=== PATIENT | female | born 1960 | race Caucasian/White ===

== ENCOUNTER 2018-08-06 08:01 | Emergency (ER) | payer BC ==
--- NOTE | 2018-08-06 08:16 | EDPHY ---
H & P Time Seen by Provider: 08/06/18 08:15 HPI/ROS: Chief complaint. Back pain HPI. 57-year-old female with low back pain. She frequently is stiff in the morning however yesterday she says she was more stiff than usual. She went to an appointment about 1 o'clock in the afternoon and the pain was so severe she was unable to walk unassisted and had to be helped in to the building as well as back out of the building. She feels she has difficulty moving her right leg and is not sure whether it is because it is weak or because of pain. She has pain radiating down the right leg. No bowel or bladder symptoms. No injury other than possibly patient was bowling 4 days ago which was unusual activity for her. No previous back surgery though has had a bulging disc in her neck previously. Symptoms are worse with trying to walk and go from lying to standing ROS 10 systems were reviewed and negative with the exception of the elements mentioned in the history of present illness Past Medical/Surgical History: Healthy Social History: , nonsmoker, no alcohol Smoking Status: Never smoked Physical Exam: General Appearance: Alert well-developed female moderate distress vital signs are stable Eyes: Pupils equal and round no pallor or injection. ENT, Mouth: Mucous membranes are moist. Respiratory: There are no retractions, lungs are clear to auscultation. Cardiovascular: Regular rate and rhythm. Gastrointestinal: Abdomen is soft and nontender, no masses, bowel sounds normal. Neurological: Awake and alert, sensory and motor exams grossly normal. Straight leg raising positive bilaterally at 30 degrees. Deep tendon reflexes are diminished but symmetrical. Great toe strength is normal. Sensation is normal Skin: Warm and dry, no rashes. Musculoskeletal: Neck is supple nontender. Tenderness on both sides of the lumbar spine may be somewhat worse to the left side of L3 area Extremities symmetrical, full range of motion. Psychiatric: Patient is oriented X 3, there is no agitation. Constitutional: Initial Vital Signs Temperature (C) 37.1 C 08/06/18 08:04 Heart Rate 85 08/06/18 08:04 Respiratory Rate 18 08/06/18 08:04 Blood Pressure 128/96 H 08/06/18 08:04 O2 Sat (%) 95 08/06/18 08:04 O2 Delivery Mode Room Air Allergies/Adverse Reactions: No Known Allergies Allergy (Verified 08/06/18 08:03) Home Medications: Medication Instructions Recorded Multivitamin 07/05/11 Cyclobenzaprine [Flexeril 10 MG 10 mg PO TID PRN #10 tab 08/06/18 (*)] Hydrocodone/APAP 5/325 [[place] 1 each PO Q4-6PRN PRN #14 tab 08/06/18 5/325 (*)] predniSONE 40 mg PO DAILY #10 tablet 08/06/18 Medical Decision Making - Diagnostics Imaging Results: MRI lumbar spine without contrast reviewed by me and discussed with radiologist shows a moderate sized lateral disc herniation but not centrally at L2-3 level. There is no stenosis, impingement, cauda equina syndrome Procedures: IV normal saline. Morphine for pain. Valium as muscle relaxer ED Course/Re-evaluation: Re-evaluation 10:30 a.m.. Patient and I discussed imaging results, treatment plan including criteria for return importance of follow-up further evaluation. She expresses understanding Differential Diagnosis: I considered musculoskeletal etiology HNP, cauda equina syndrome - Data Points Laboratory Results: Laboratory Results 08/06/18 08:40 08/06/18 08:40 08/06/18 08/06/18 08:40 08:40 WBC 5.47 10^3/uL 10^3/uL (3.80-9.50) RBC 4.64 10^6/uL 10^6/uL (4.18-5.33) Hgb 13.7 g/dL g/dL (12.6-16.3) Hct 41.1 % % (38.0-47.0) MCV 88.6 fL fL (81.5-99.8) MCH 29.5 pg pg (27.9-34.1) MCHC 33.3 g/dL g/dL (32.4-36.7) RDW 13.0 % % (11.5-15.2) Plt Count 192 10^3/uL 10^3/uL (150-400) MPV 10.9 fL fL (8.7-11.7) Neut % (Auto) 65.0 % % (39.3-74.2) Lymph % (Auto) 24.5 % % (15.0-45.0) [place] % (Auto) 7.3 % % (4.5-13.0) Eos % (Auto) 2.0 % % (0.6-7.6) Baso % (Auto) 0.7 % % (0.3-1.7) Nucleat RBC Rel Count 0.0 % % (0.0-0.2) Absolute Neuts (auto) 3.55 10^3/uL 10^3/uL (1.70-6.50) Absolute Lymphs (auto) 1.34 10^3/uL 10^3/uL (1.00-3.00) Absolute Monos (auto) 0.40 10^3/uL 10^3/uL (0.30-0.80) Absolute Eos (auto) 0.11 10^3/uL 10^3/uL (0.03-0.40) Absolute Basos (auto) 0.04 10^3/uL 10^3/uL (0.02-0.10) Absolute Nucleated RBC 0.00 10^3/uL 10^3/uL (0-0.01) Immature Gran % 0.5 % % (0.0-1.1) Immature Gran # 0.03 10^3/uL 10^3/uL (0.00-0.10) Sodium 141 mEq/L mEq/L (135-145) Potassium 4.6 mEq/L mEq/L (3.3-5.0) Chloride 107 mEq/L mEq/L (97-110) Carbon Dioxide 24 mEq/l mEq/l (22-31) Anion Gap 10 mEq/L mEq/L (8-16) BUN 16 mg/dL mg/dL (7-23) Creatinine 0.7 mg/dL mg/dL (0.6-1.0) Estimated GFR > 60 Glucose 101 mg/dL H mg/dL (70-100) Calcium 9.4 mg/dL mg/dL (8.5-10.4) Medications Given: Discontinued Medications Diazepam (Valium) 5 mg IVP EDNOW ONE Stop: 08/06/18 08:32 Last Admin: 08/06/18 09:43 Dose: 2.5 mg Morphine Sulfate (Morphine) 6 mg IVP EDNOW ONE Stop: 08/06/18 08:31 Last Admin: 08/06/18 08:43 Dose: 2 mg Departure - Departure Disposition: Home, Routine, Self-Care Clinical Impression: HNP (herniated nucleus pulposus), lumbar Condition: Good Instructions: Lumbar Radiculopathy (ED) Additional Instructions: Hydrocodone or Tylenol as needed for pain. Flexeril as muscle relaxer Prednisone to help with inflammation. Do not take ibuprofen while taking the prednisone Return for leg weakness or bowel or bladder symptoms. Call Neurosurgery tomorrow to schedule follow-up appointment Referrals: NONE *PRIMARY CARE P,. [Primary Care Provider] - As per Instructions Jayden Crespo MD [Medical Doctor] - 2-3 days, call for appt. Stand Alone Forms: Work Excuse Prescriptions: Cyclobenzaprine [Flexeril 10 MG (*)] 10 mg PO TID PRN #10 tab PRN Reason: Spasms Hydrocodone/APAP 5/325 [[place] 5/325 (*)] 1 each PO Q4-6PRN PRN #14 tab PRN Reason: Pain, Moderate predniSONE 40 mg PO DAILY #10 tablet
[2018-08-06] MEDS: DIAZEPAM 5 MG/ML 1 ML SYR IVP ONE ×2 (08:45→09:43)
[2018-08-06 08:50] LABS: PLATELET COUNT 192 10^3/uL (150-400)
[2018-08-06] MEDS ORDERED: DIAZEPAM 5 MG/ML 1 ML SYR ONE (09:42)
[2018-08-06 10:22] VITALS: BP 127/85
== END 2018-08-06 10:52 | disposition home or self-care (01) ==
DX: M51.16 Intervertebral disc disorders with radiculopathy, lumbar region (principal)
CPT/HCPCS: 96374; J2270; J3360